=== PATIENT | male | born 1945 | race Caucasian/White ===

== ENCOUNTER 2018-09-16 10:24 | Day surgery (SDC) | payer MEDICARE ==
[~2018-09-16] VITALS: Ht 166.4 cm; Wt 87.4 kg
[2018-09-16] MEDS ORDERED: LACTATED RINGERS 1,000 ML IV SCH (11:02)
[2018-09-16] MEDS ORDERED: ALBUTEROL INH (11:03)
[2018-09-16] MEDS ORDERED: ADVAIR DISKUS INH (11:04)
[2018-09-16 11:07] VITALS: BP 164/89
[2018-09-16] MEDS ORDERED: PLEASE ENTER HEIGHT AND WEIGHT MC SCH (11:30)
[2018-09-16] MEDS ORDERED: ONDANSETRON 2MG/ML, 2ML IV PRN (14:00)
[2018-09-16] MEDS ORDERED: hydrALAzine 20 MG/ML, 1ML IV PRN (14:00)
[2018-09-16] MEDS ORDERED: LABETALOL 5MG/ML, 20ML IV PRN (14:00)
[2018-09-16] MEDS ORDERED: METOPROLOL 1 MG/ML, 5ML IV PRN (14:00)
[2018-09-16] MEDS ORDERED: ALBUTEROL SULFATE 2.5 MG/3 ML NPPB PRN (14:00)
[2018-09-16] MEDS ORDERED: FENTANYL PF 100 MCG/2ML IV PRN (14:00)
[2018-09-16] MEDS ORDERED: METRONIDAZOLE PMX 500MG/100ML 100 ML ONE (14:40)
[2018-09-16] MEDS ORDERED: CIPROFLOXACIN/PMX 400MG/200ML 200 ML ONE (14:40)
[2018-09-16] MEDS ORDERED: ONDANSETRON 2MG/ML, 2ML ONE (15:08)
[2018-09-16] MEDS ORDERED: FENTANYL PF 100 MCG/2ML ONE (15:09)
[2018-09-16] MEDS ORDERED: PROPOFOL 10 MG/ML, 50ML ONE (15:29)
== END 2018-09-16 17:00 | disposition home or self-care (01) ==
LOC: OUT 10:24
PROVIDERS: ATTEND Internal Medicine Geriatric Medicine
DX: K75.89 Other specified inflammatory liver diseases (principal); K74.60 Unspecified cirrhosis of liver; K76.0 Fatty (change of) liver, not elsewhere classified; J45.909 Unspecified asthma, uncomplicated; Z98.49 Cataract extraction status, unspecified eye; Z87.891 Personal history of nicotine dependence; Z96.1 Presence of intraocular lens
CPT/HCPCS: 43242; 88305; 88307; 88313; 93005; J0744; J2405; J2704; J3010; J7120